=== PATIENT | male | born 1930 | race Caucasian/White ===

== ENCOUNTER 2021-05-01 14:03 | Outpatient (CLI) | payer MEDICARE ==
[2021-05-01 15:32] LABS: Hemoglobin 14.4 g/dL (13.5-17.5); Mean Corpuscular HGB CONC 31.9 g/dL (32.0-36.0); Mean Corpuscular Hemoglobin 30.9 pg (27.0-33.0); Mean Corpuscular Volume 96.8 fl (81.2-95.1); Mean Platelet Volume 11.3 fl (7.4-10.4); Platelet Count 238 10x3/uL (150-450); RBC Distribution Width 14.6 % (11.5-14.5); Red Blood Cell (RBC) Count 4.66 10x6/uL (4.32-5.72)
[2021-05-01 15:49] LABS: INR-International Normal Ratio 1.1; Prothrombin Time 11.8 sec (9.5-12.1)
[2021-05-01 15:52] LABS: Anion Gap 11 mmol/L (10-20); BUN (Urea Nitrogen) 13 mg/dL (8.4-25.7); Calc. Creatinine Clearance 0 mL/min (70-130); Calcium 8.9 mg/dL (7.8-10.44); Carbon Dioxide 29 mmol/L (23-31); Chloride 105 mmol/L (98-107); Glucose 94 mg/dL (83-110); Potassium 4.3 mmol/L (3.5-5.1); Sodium 141 mmol/L (136-145)
[2021-05-02 09:08] LABS: SARS-CoV-2 PCR by NAA Not Detected (NotDetected)
== END 2021-05-01 14:04 | disposition home or self-care (01) ==
LOC: LABBT 14:03
PROVIDERS: ATTEND Internal Medicine Cardiovascular Disease
DX: Z01.812 Encounter for preprocedural laboratory examination (principal); I48.19 Other persistent atrial fibrillation; Z20.822 Contact with and (suspected) exposure to COVID-19
CPT/HCPCS: 80048; 85027; 85610; U0003; U0005

== ENCOUNTER 2021-05-04 06:13 | Day surgery (SDC) | payer MEDICARE ==
[2021-05-02 13:30] VITALS: BMI 25.0
[2021-05-04] MEDS ORDERED: PROPOFOL 200 MG/20 ML VIAL ONE (07:23)
== END 2021-05-04 08:16 | disposition home or self-care (01) ==
LOC: CCL 06:13
PROVIDERS: ATTEND Internal Medicine Cardiovascular Disease
PROC: 5A2204Z Restoration of Cardiac Rhythm, Single (ICD-10-PCS; principal; 2021-05-04)
DX: I48.19 Other persistent atrial fibrillation (principal); I10 Essential (primary) hypertension; E78.5 Hyperlipidemia, unspecified; E03.9 Hypothyroidism, unspecified; I69.919 Unspecified symptoms and signs involving cognitive functions following unspecified cerebrovascular disease; F01.50 Vascular dementia, unspecified severity, without behavioral disturbance, psychotic disturbance, mood disturbance, and anxiety; Z79.01 Long term (current) use of anticoagulants; Z79.82 Long term (current) use of aspirin; Z79.899 Other long term (current) drug therapy; Z91.040 Latex allergy status; Z88.0 Allergy status to penicillin; Z88.8 Allergy status to other drugs, medicaments and biological substances
CPT/HCPCS: 92960; 93005; 93010; J2704

== ENCOUNTER 2021-05-07 11:17 | Emergency (ER) | payer MEDICARE ==
[2021-05-07] MEDS ORDERED: Bupivacaine 0.25% 10 ML VIAL ONE (12:15)
[2021-05-07] MEDS ORDERED: Acetaminophen 500 MG TAB ONE (12:15)
[2021-05-07] MEDS ORDERED: Lidocaine 1% w/Epinephrine 1:100K 20 ML VIAL ONE (12:15)
[2021-05-07] MEDS ORDERED: Boostrix 0.5 ML (Tdap) VIAL ONE (12:41)
[2021-05-07] MEDS ORDERED: Bacitracin 1 PK ONE (14:48)
== END 2021-05-07 15:20 | disposition home or self-care (01) ==
LOC: ERS 11:17
DX: S81.812A Laceration without foreign body, left lower leg, initial encounter (principal); S40.022A Contusion of left upper arm, initial encounter; Z79.01 Long term (current) use of anticoagulants; Z79.899 Other long term (current) drug therapy; W13.2XXA Fall from, out of or through roof, initial encounter
CPT/HCPCS: 12035; 70450; 72125; 90471; 90715; S0020